=== PATIENT | male | born 1955 | race Caucasian/White ===

== ENCOUNTER 2023-10-05 09:04 | Day surgery (SDC) | payer MEDICARE ==
[~2023-10-05] VITALS: Ht 182.9 cm; Wt 95.4 kg
[2023-10-05] VITALS (12 sets, daily range): BP systolic 105–140; BP diastolic 52–87; PULSE 48–64; RESP 10–18; TEMP 98.1; O2SAT 92–97
[~2023-10-05 09:04] MED LIST: ASPI-10 PO; IBUP-2697 PO
[2023-10-05] MEDS ORDERED: diphenhydrAMINE 25mg capsule PO PRN (09:40)
[2023-10-05] MEDS ORDERED: nitroGLYCERIN 0.4mg SUBLingual tab SL PRN ×2 (09:40→12:10)
[2023-10-05] MEDS ORDERED: LORazepam 0.5 MG tablet PO PRN (09:40)
[2023-10-05] MEDS ORDERED: normal saline 1,000 ML IV SCH (09:40)
[2023-10-05 10:06] LABS: BASOPHILS % (AUTO) 0.5 % (0-1); HEMATOCRIT 47.1 % (42.0-52.0); HEMOGLOBIN 15.9 g/dl (14.0-17.9); LYMPHOCYTES # (AUTO) 1.3 X10'3 (1.1-4.8); MEAN CORPUSCULAR HEMOGLOBIN 33.2 PG (27.0-31.0); MEAN CORPUSCULAR HGB CONC 33.7 g/dL (33.0-36.5); MEAN CORPUSCULAR VOLUME 98.3 FL (78-98); MEAN PLATELET VOLUME 7.7 FL (7.4-10.4); MONOCYTES # (AUTO) 0.6 X10'3 (0-0.9); MONOCYTES % (AUTO) 12.2 % (2-12); NEUTROPHILS # (AUTO) 2.6 X10'3 (1.8-7.7); NEUTROPHILS % (AUTO) 57.3 % (42-75); PLATELET COUNT 250 X10'3 (140-440); RED BLOOD COUNT 4.79 X10'6 (4.70-6.10); RED CELL DISTRIBUTION WIDTH 14.1 % (11.5-14.5); WHITE BLOOD COUNT 4.5 X10'3 (4.5-11.0)
[2023-10-05 10:11] LABS: APTT 26 SECONDS (22-32); PROTHROMBIN TIME 10.3 SECONDS (9.0-12.0)
[2023-10-05 10:12] LABS: ALBUMIN 3.5 G/DL (3.4-5.0); ANION GAP 8 (8-16); BLOOD UREA NITROGEN 16 MG/DL (7-18); BUN/CREATININE RATIO 19.8 (10.0-20.0); CALCIUM 8.9 MG/DL (8.5-10.1); CHLORIDE 101 MMOL/L (99-107); CHOL/HDL RATIO 1.8 (0.00-4.99); CHOLESTEROL 189 MG/DL (0-200); CREATININE 0.81 MG/DL (0.60-1.10); GLUCOSE 111 MG/DL (70-104); HDL CHOLESTEROL 107 MG/DL (35-60); LDL CHOLESTEROL 76 MG/DL (50-100); POTASSIUM 3.4 MMOL/L (3.5-5.1); SODIUM 137 MMOL/L (135-145); TOTAL CARBON DIOXIDE 28.4 MMOL/L (24-32); TRIGLYCERIDES 44 MG/DL (20-135); eCRCL 93 ML/MIN; eGFR > 90 ML/MIN
[2023-10-05] MEDS ORDERED: LIDOcaine 1% 30ml preserv. free vial ONE (10:23)
[2023-10-05] MEDS ORDERED: iohexol 350 MG/ML 50ML vial IV ONE ×2 (10:24→11:09)
[2023-10-05] MEDS ORDERED: iohexol 350MG/ML 100ml bottle IV ONE (10:24)
[2023-10-05] MEDS ORDERED: fentaNYL/PF 50MCG/1 ML 2ML syringe ONE ×2 (10:24→11:07)
[2023-10-05] MEDS ORDERED: midazolam 1 mg/ML 2ml injection ONE ×2 (10:24→11:04)
[2023-10-05] MEDS ORDERED: HYDR50TA4 PO (10:33)
[2023-10-05] MEDS ORDERED: CoQ10 PO (10:33)
[2023-10-05] MEDS ORDERED: multivitamin (10:33)
[2023-10-05] MEDS ORDERED: AMLO5TAB16 PO (10:33)
[2023-10-05] MEDS ORDERED: glucosamine (10:33)
[2023-10-05] MEDS ORDERED: diphenhydrAMINE 50 mg/ml inj ONE (11:03)
[2023-10-05] MEDS ORDERED: OXAZEpam 15mg capsule PO PRN (12:10)
[2023-10-05] MEDS ORDERED: normal saline 1000ml 1,000 ML IV SCH (12:10)
[2023-10-05] MEDS ORDERED: HYDROcodone/acetaminophen 10/325mg tab PO PRN (12:10)
[2023-10-05] MEDS ORDERED: ondansetron/PF 4mg/2ml inj IV PRN (12:10)
[2023-10-05] MEDS ORDERED: proCHLORperazine 10 MG/2 ml inj IV PRN (12:10)
[2023-10-05] MEDS ORDERED: HYDROcodone/acetaminophen 5mg/325mg tablet PO PRN (12:10)
== END 2023-10-05 16:45 | disposition home or self-care (01) ==
LOC: SSTAY O 09:04
PROVIDERS: ATTEND Internal Medicine Cardiovascular Disease
DX: R94.39 Abnormal result of other cardiovascular function study (principal); I25.119 Atherosclerotic heart disease of native coronary artery with unspecified angina pectoris; I10 Essential (primary) hypertension; Z79.899 Other long term (current) drug therapy; Z88.8 Allergy status to other drugs, medicaments and biological substances
CPT/HCPCS: 36415; 71046; 80048; 80061; 85025; 85610; 85730; 93458; 93567; 99152; 99153; A6258; C1760; J1200; J1644; J2001; J2250; J3010; J7030; Q9967; Z7610; J3490